=== PATIENT | female | born 1930 | race Caucasian/White ===

== ENCOUNTER 2017-09-28 10:29 | Emergency (ER) | payer OTHER ==
[2017-09-28 10:54] VITALS: TEMP 98.7; BMI 26.4
--- NOTE | 2017-09-28 11:04 | PDOC ---
History of Present Illness - General Chief Complaint: Injury Stated Complaint: LOWER BACK PAIN & LEGS PAIN Time Seen by Provider: 09/28/17 10:42 - History of Present Illness Initial Comments: 09/28/17 11:01 87yo F hx HTN, fall 09/22/17 p/w L hip, low back pain and L knee pain since the fall. Pt tripped on a "contraption" and fell onto her L side. Denies HS, LOC, headaches, SOB, CP. Tried advil, hot/cold packs for pain relief to knee with minimal improvement. Pt has been ambulatory but with pain, worst in the lower back. Only takes metoprolol. Not on any ASA or AC. Denies recent fevers, chills , focal weakness or numbness, urine/stool retention or incontinence, saddle anesthesia, frequency, dysuria, urgency, abd pain, N/V/D. PMD: Dr. Weinstein ([place]) Past History - Past Medical History Allergies/Adverse Reactions: Allergies Allergy/AdvReac Type Severity Reaction Status Date / Time No Known Allergies Allergy Verified 09/28/17 10:54 Home Medications: Ambulatory Orders Calcium/Magnesium/Vit D3 [Calcium 500 mg Tablet] 1 each PO DAILY 03/03/16 Cholecalciferol (Vitamin D3) [Vitamin D3] 1,000 unit PO DAILY 03/03/16 Metoprolol Tartrate 25 mg PO DAILY 03/03/16 COPD: No HTN: Yes - Suicide/Smoking/Psychosocial Hx Smoking History: Never smoked Have you smoked in the past 12 months: No Hx Alcohol Use: No Drug/Substance Use Hx: No Substance Use Type: None Review of Systems - Review of Systems Comments:: 09/28/17 15:50 GENERAL/CONSTITUTIONAL: No fever or chills. No weakness. HEAD, EYES, EARS, NOSE AND THROAT: No change in vision. No ear pain or discharge. No sore throat. GASTROINTESTINAL: No nausea, vomiting, diarrhea or constipation. GENITOURINARY: No dysuria, frequency, or change in urination. CARDIOVASCULAR: No chest pain or shortness of breath. RESPIRATORY: No cough, wheezing, or hemoptysis. MUSCULOSKELETAL: No joint or muscle swelling or pain. +back, knee pain SKIN: No rash NEUROLOGIC: No headache, vertigo, loss of consciousness, or change in strength/ sensation. ENDOCRINE: No increased thirst. No abnormal weight change. HEMATOLOGIC/LYMPHATIC: No anemia, easy bleeding, or history of blood clots. ALLERGIC/IMMUNOLOGIC: No hives or skin allergy. *Physical Exam - Vital Signs Last Vital Signs Temp Pulse Resp BP Pulse Ox 98.7 F 56 L 18 195/66 100 09/28/17 10:31 09/28/17 10:31 09/28/17 10:31 09/28/17 10:31 09/28/17 10:31 - Physical Exam Comments: 09/28/17 15:51 GENERAL: Awake, alert, and fully oriented, in no acute distress, ambulating in ED, pleasant HEAD: No signs of trauma EYES: PERRLA, EOMI, sclera anicteric, conjunctiva clear ENT: Auricles normal inspection, hearing grossly normal, nares patent, oropharynx clear without exudates. Moist mucosa NECK: Normal ROM, supple, no lymphadenopathy, JVD, or masses LUNGS: Breath sounds equal, clear to auscultation bilaterally. No wheezes, and no crackles HEART: Regular rate and rhythm, normal S1 and S2, no murmurs, rubs or gallops ABDOMEN: Soft, nontender, normoactive bowel sounds. No guarding, no rebound. No masses EXTREMITIES: Normal range of motion, no edema. No clubbing or cyanosis. No cords, erythema, or tenderness. 2+ peripheral pulses in all extremities BACK: No midline spinal ttp, +L paraspinal lumbar ttp NEUROLOGICAL: Normal speech, cranial nerves intact, negative pronator drift, 5/ 5 strength in all 4 extremities, normal sensation to light touch in all 4 extremities, normal cerebellar exam, normal gait, normal reflexes and tone SKIN: Warm, Dry, normal turgor, no rashes noted. +R mid anterior guan with 1cm round superfical non bleeding abrasion Medical Decision Making - Medical Decision Making 09/28/17 16:53 87-year-old female with a history of hypertension presents to the emergency Department with left lower back pain radiating down the left lower extremity since a fall she sustained one week ago. Vitals within normal limits. On exam the patient has left paraspinal tenderness to palpation and a positive straight leg test. Given the patient's age, a CT of the lumbar spine and pelvis was obtained which was negative for any bony injury. An x-ray of her L knee was also obtained to rule out any acute fracture, x-ray was also negative. Pain is improved after Motrin and tramadol. Patient requests discharge home. We'll refer patient to orthopedics for follow-up and also advised her to follow-up with her primary doctor within 1-2 days. I discussed the physical exam findings, ancillary test results and final diagnoses with the patient. I answered all of the patient's questions. The patient was satisfied with the care received and felt comfortable with the discharge plan and treatment plan. The patient will call their primary care physician within 24 hours to arrange follow-up and will return to the Emergency Department with any new, persistent or worsening symptoms. *DC/Admit/Observation/Transfer Diagnosis at time of Disposition: Back pain - Discharge Dispostion Disposition: HOME Condition at time of disposition: Stable Admit: No - Referrals Referrals: Miguel Condon MD [Staff Physician] - - Patient Instructions Printed Discharge Instructions: DI for Low Back Pain Additional Instructions: As discussed, follow-up with your primary doctor within 1-2 days. I have also provided you with a referral to orthopedic surgery for follow-up within 1 week for your back pain. Take Motrin every 6 hours as needed for pain. If Motrin is not adequately controlling your pain, you may take tramadol, however be careful because this medication can make you drowsy or dizzy. Do not drive a car if you are taking tramadol. Return to the emergency department if you have any new, worsening or concerning symptoms. - Post Discharge Activity - Attestations Physician Attestion: 09/28/17 16:59 I, Dr. Ever Back MD, attest that this document has been prepared under my direction and personally reviewed by me in its entirety. I further attest, that it accurately reflects all work, treatment, procedures and medical decision -making performed by me.
[2017-09-28] MEDS ORDERED: IBUPROFEN 600 MG TABLET (FP) PO ONE ×2 (11:27→11:30)
[2017-09-28] MEDS ORDERED: traMADol HCL 50 MG TABLET PO ONE (14:25)
[2017-09-28] MEDS ORDERED: traMADol HCL 50 MG TABLET ONE (14:57)
[2017-09-28] MEDS ORDERED: ACETAMINOPHEN 325 MG TABLET (FP) PO ONE (16:42)
[2017-09-28] MEDS ORDERED: ACETAMINOPHEN 325 MG TABLET (FP) ONE (16:45)
[2017-09-28 17:12] VITALS: BP 160/86; PULSE 64
== END 2017-09-28 17:13 | disposition home or self-care (01) ==
LOC: FER 10:29
DX: M54.5 Low back pain (principal); W01.0XXA Fall on same level from slipping, tripping and stumbling without subsequent striking against object, initial encounter; Y93.89 Activity, other specified; Y92.9 Unspecified place or not applicable; I10 Essential (primary) hypertension
CPT/HCPCS: 72131-TC; 72192-TC; 73562-TC-LT-FY; 99282-25